=== PATIENT | male | born 1985 | race Two or more races ===

== ENCOUNTER 2018-11-29 15:17 | Emergency (ER) | payer OTHER ==
[2018-11-29] MEDS ORDERED: NS 0.9% 1000 ML** 1,000 ML IV ONE ×2 (15:37→16:51)
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
[2018-11-29] MEDS ORDERED: Iohexol 300* (CONTRAST) 10 ML SDV IV ONE (15:51)
[2018-11-29 16:03] LABS: ABS Basophils 0.1 10^3/ul (0-0.2); ABS Eosinophils 0.2 10^3/ul (0-0.6); ABS Lymphocytes 2.6 10^3/ul (1.0-4.8); ABS Monocytes 0.6 10^3/ul (0-0.8); ABS Neutrophils 8.8 10^3/ul (1.5-7.7); Hematocrit 41 % (42-52); Hemoglobin 14.2 g/dL (14.0-18.0); Lymphocyte % 20.9 %; Mean Corpuscular HGB Conc 35 g/dL (31-36); Mean Corpuscular Hemoglobin 29 pg (27-31); Mean Corpuscular Volume 82 fL (80-94); Mean Platelet Volume 8.1 fL (7.4-10.4); Nucleated Red Blood Cells % 0.1; Platelet Count 220 10^3/uL (150-450); Red Blood Count 4.98 10^6 /uL (4.18-5.48); Red Cell Distribution Width 13 % (10-15); White Blood Count 12.4 10^3/uL (3.5-10.8)
[2018-11-29 16:20] LABS: ALT 23 U/L (7-52); AST 33 U/L (13-39); Albumin 4.1 g/dL (3.2-5.2); Albumin/Globulin Ratio 1.8 (1-3); Alkaline Phosphatase 49 U/L (34-104); Anion Gap 6 mmol/L (2-11); BUN/Creatinine Ratio 13.3 (8-20); Blood Urea Nitrogen 19 mg/dL (6-24); CO2 Carbon Dioxide 29 mmol/L (22-32); Calcium 9.1 mg/dL (8.6-10.3); Chloride 105 mmol/L (101-111); EGFR African American 68.9 (>60); Globulin 2.3 g/dL (2-4); Glucose 141 mg/dL (70-100); Potassium 3.4 mmol/L (3.5-5.0); Sodium 140 mmol/L (135-145); Total Protein 6.4 g/dL (6.4-8.9)
[2018-11-29] MEDS ORDERED: Ondansetron INJ* 2 MG/ML VIAL IV ONE (16:33)
[2018-11-29] MEDS ORDERED: Morphine 4 MG/ML VIAL (1 ml) 4 MG/ML VIAL IV ONE (16:33)
[2018-11-29 16:46] LABS: Alcohol < 10 mg/dL (<10)
[2018-11-29] MEDS ORDERED: Tetan/Diph/Pertus SYR(Tdap)* 0.5 ML SYR(BOOSTRIX) use SYR contains LATEX IM ONE (17:00)
[2018-11-29] MEDS ORDERED: Ketorolac INJ* 30 MG/ML 1 ML VIAL IV PUSH ONE (17:00)
[2018-11-29] MEDS ORDERED: oxyCODONE/Acetamin 5/325 MG* TAB PO ONE (18:20)
[2018-11-29 19:15] VITALS: BP 103/78
== END 2018-11-29 19:14 | disposition home or self-care (01) ==
LOC: ED 15:17
DX: R07.89 Other chest pain (principal); R10.9 Unspecified abdominal pain; R10.2 Pelvic and perineal pain; M25.562 Pain in left knee; M25.551 Pain in right hip; M25.552 Pain in left hip; V49.40XA Driver injured in collision with unspecified motor vehicles in traffic accident, initial encounter; W22.11XA Striking against or struck by driver side automobile airbag, initial encounter; Y92.410 Unspecified street and highway as the place of occurrence of the external cause
CPT/HCPCS: 36415; 71260; 74177; 80053; 80320; 83605; 85025; 86850; 86900; 86901; 90471; 96361; 96374; 96375; 99283; A9270-GY; G0480; J2270; J2405; Q9967